=== PATIENT | female | born 1955 | race Caucasian/White ===

== ENCOUNTER → 2016-09-25 09:10 | Outpatient (CLI) | payer OTHER | END | disposition home or self-care (01) | LOC: D.RT 08-16 08:00 | DX: J44.9 Chronic obstructive pulmonary disease, unspecified (principal) ==

== ENCOUNTER → 2016-10-18 12:35 | Outpatient (CLI) | payer OTHER ==
--- NOTE | ~2016-10-18 | EEG ---
PATIENT:MARIA R JENKINS DATE OF SERVICE: 10/18/16 MEDICAL RECORD: [id number] DATE OF : 55 LOCATION: [facility] ADMISSION DATE: 10/18/16 REFERRING PHYSICIAN: INTERPRETING PHYSICIAN: CONSTANTINO DAMIAN MD DATE OF SERVICE: 10/19/2016 Referred by myself as an outpatient. ELECTROENCEPHALOGRAM NUMBER: [id number]. DATE OF EXAMINATION: 10/18/2016 at 1:30 p.m. TECHNICAL DATA: This electroencephalographic recording consists of approximately 20 minutes of data collection utilizing the international 10/20 system of electrode placement and both referential and non-referential montages. Sixteen channels of electrocerebral recording are accompanied by a 17th channel dedicated to the electrocardiographic rhythm and 2 channels of electromyographic recording. Recording is performed in the awake and drowsy states utilizing activation by hyperventilation and photic stimulation. ELECTROENCEPHALOGRAPHIC DATA: The awake state comprises approximately 70% of the recorded electrocerebral activity. Electromyographic artifact is prominent and rapid eye movements are seen. The posterior dominant background consists of a symmetric, rhythmic, waxing and waning alpha activity of 8-9 Hz, which is suppressed by eye opening. The drowsy state comprises the remaining portion of the recorded electrocerebral activity. Electromyographic artifact is mildly reduced and rapid eye movements are not seen. The posterior dominant background is at times relatively suppressed. No abnormal or focal slowing is identified. No epileptiform discharges are seen. Photic stimulation and hyperventilation induced no abnormal change in the recorded electrocerebral activity. INTERPRETATION: Normal (awake and drowsy). This is a normal electroencephalographic recording. TRANSINT:[id number] Voice Confirmation ID: [id number] DOCUMENT ID: [id number] CONSTANTINO DAMIAN MD CC: [id number] DICTATION DATE: 10/19/16705 BRANCH ASSOCIATE: 10/19/16 0723 DEP CLI 10/18/16 [id number] [place] [id number]
== END | disposition home or self-care (01) ==
LOC: D.CN 12:35
DX: G25.0 Essential tremor (principal); J44.9 Chronic obstructive pulmonary disease, unspecified